=== PATIENT | male | born 1995 | race African-American/Black ===

== ENCOUNTER 2022-09-24 19:50 | Emergency (ER) | payer BC ==
[~2022-09-24] VITALS: Ht 180.3 cm; Wt 120.6 kg
[2022-09-24 21:23] LABS: BASOPHILS % 0.3 % (0.0-2.0); EOSINOPHILS % 4.1 % (0.0-5.0); HEMATOCRIT. 43.1 % (42.0-52.0); HEMOGLOBIN. 14.4 g/dL (14.0-18.0); LYMPHOCYTES % 24.6 % (20.0-50.0); MEAN CORPUSCULAR HEMOGLOBIN 27.8 pg (28.0-32.0); MEAN PLATELET VOLUME 8.9 fl (7.4-10.4); MONOCYTES % 10.6 % (2.0-8.0); NEUTROPHILS % 60.4 % (40.0-76.0); PLATELET 285 x1000/uL (130-400); RED BLOOD CELL COUNT 5.19 mill/uL (4.7-6.1); RED CELL DISTRIBUTION WIDTH 13.6 % (11.6-14.6)
[2022-09-24 21:31] LABS: CHLORIDE 104 mEq/L (98-107)
[2022-09-25 02:00] VITALS: BP 154/90
[2022-09-25] MEDS ORDERED: IBUP-2029 MT (02:14)
== END 2022-09-25 02:30 | disposition home or self-care (01) ==
LOC: ER 20:10
DX: S63.616A Unspecified sprain of right little finger, initial encounter (principal); S09.90XA Unspecified injury of head, initial encounter; Y08.89XA Assault by other specified means, initial encounter; Y93.89 Activity, other specified; Y92.89 Other specified places as the place of occurrence of the external cause; Y99.8 Other external cause status; J45.909 Unspecified asthma, uncomplicated
CPT/HCPCS: 36415; 73130; 80053; 85025; 99285

== ENCOUNTER 2024-01-28 03:56 | Emergency (ER) | payer BC ==
[~2024-01-28] VITALS: Ht 180.3 cm; Wt 121.0 kg
[~2024-01-28 03:56] MED LIST: IBUP-2029 MT
[2024-01-28 04:06] VITALS: O2SAT 100
[2024-01-28] MEDS ORDERED: POLY119P3 PO (04:45)
[2024-01-28 05:23] VITALS: BP 148/90; PULSE 89; RESP 20; TEMP 97.9; O2SAT 100
== END 2024-01-28 05:25 | disposition home or self-care (01) ==
LOC: ER 03:56
DX: K59.00 Constipation, unspecified (principal); J45.909 Unspecified asthma, uncomplicated
CPT/HCPCS: 74018; 99283

== ENCOUNTER 2024-01-30 16:15 | Emergency (ER) | payer BC ==
[~2024-01-30] VITALS: Ht 180.3 cm; Wt 123.0 kg
[~2024-01-30 16:15] MED LIST changes: +POLY119P3 PO
[2024-01-30 16:20] VITALS: O2SAT 99
[2024-01-30 21:35] VITALS: BP 137/68; PULSE 84; RESP 18; TEMP 36.78072; O2SAT 99
== END 2024-01-30 22:00 | disposition home or self-care (01) ==
LOC: ER 16:15
DX: K59.00 Constipation, unspecified (principal); J45.909 Unspecified asthma, uncomplicated
CPT/HCPCS: 99281